=== PATIENT | male | born 1960 | race African-American/Black ===

== ENCOUNTER 2016-09-02 03:46 | Inpatient (IN) | payer MEDICAID, MEDICARE ==
[~2016-09-02] VITALS: Ht 171.4 cm; Wt 74.8 kg
[~2016-09-02 03:46] MED LIST: ATOR20TA65 PO; CARI350T PO; CINA30 PO; CLON0.3T PO; DIAZ10TA4 PO; HYDR-3933; OXYC30TA89 PO; SEVE800T8 PO
[2016-09-02] MEDS ORDERED: ONDANSETRON HCL 4MG/2ML VIAL IV STA (04:01)
[2016-09-02] MEDS ORDERED: MORPHINE SULFATE 4 MG/ML CPJ (NOT FOR IM USE) IV ONE ×2 (04:15→06:15)
[2016-09-02] MEDS ORDERED: LIDOCAINE HCL 1% 20ML VIAL (Pyxis) INJ MC ONE (04:15)
[2016-09-02] MEDS ORDERED: BACITRACIN ZINC OINT UDPKT TOP ONE (04:15)
[2016-09-02] MEDS ORDERED: DIPHENHYDRAMINE 50MG/ML VIAL IV ONE ×2 (04:15→06:15)
[2016-09-02 04:31] LABS: HEMATOCRIT. 47.3 % (42.0-52.0); HEMOGLOBIN. 15.3 g/dL (14.0-18.0); MEAN CORPUSCULAR HEMOGLOBIN 29.1 pg (28.0-32.0); MEAN CORPUSCULAR HGB CONC 32.4 g/dL (31.0-37.0); MEAN PLATELET VOLUME 8.3 fl (7.4-10.4); PLATELET 238 x1000/uL (130-400); RED BLOOD CELL COUNT 5.26 mill/uL (4.7-6.1); WHITE BLOOD COUNT 12.2 x1000/uL (4.5-11.0)
[2016-09-02 04:40] LABS: DIFFERENTIAL COMMENT 1
[2016-09-02 04:44] LABS: INR 1.1; PROTHROMBIN TIME 11.4 sec
[2016-09-02 04:46] LABS: ALANINE AMINOTRANSFERASE 25 IU/L (13-61); ALBUMIN 3.2 g/dL (3.4-5.0); ANION GAP 16; CALCIUM 9.2 mg/dL (8.5-10.1); CARBON DIOXIDE 29 mEq/L (21-32); CHLORIDE 95 mEq/L (98-107); INDEX HEMOLYSI 2 (1-3); INDEX ICTERIC 1 (1-4); INDEX LIPEMIC 1 (1-3); UREA NITROGEN BLOOD 34 mg/dL (7-21); eGFR 8 mL/min (>60)
[2016-09-02 06:41] LABS: PLATELET ESTIMATE NORMAL
[2016-09-02] MEDS ORDERED: PIPERACILLIN/TAZ 3.375G PREMIX 50 ML IV ONE (07:00)
[2016-09-02] MEDS ORDERED: VANCOMYCIN 1 G PREMIX 200 ML IV ONE (07:00)
[2016-09-02 09:20] VITALS: BP 100/67
[2016-09-02] MEDS ORDERED: NITROGLYCERIN 0.4MG TABLET SL SL PRN (09:30)
[2016-09-02] MEDS ORDERED: DOCUSATE SODIUM 100MG CAPSULE PO PRN (09:30)
[2016-09-02] MEDS ORDERED: ONDANSETRON HCL 4MG/2ML VIAL IV PRN (09:30)
[2016-09-02] MEDS ORDERED: MAGNESIUM/ALUMINUM HYDROXIDE/SIMETHICONE 30ML UDC PO PRN (09:30)
[2016-09-02] MEDS: PANTOPRAZOLE SODIUM 40 MG/VIAL IV SCH (09:30)
[2016-09-02] MEDS: METOPROLOL TARTRATE 25MG TABLET PO SCH ×2 (09:30→21:00)
[2016-09-02] MEDS ORDERED: ACETAMINOPHEN 325MG TABLET PO PRN (09:30)
[2016-09-02] MEDS ORDERED: CLONIDINE 0.1MG TABLET PO PRN (09:30)
[2016-09-02] MEDS ORDERED: GUAIFENESIN 200MG/10ML SUGAR FREE UDC PO PRN (09:30)
[2016-09-02] MEDS ORDERED: TRAMADOL 50MG TABLET PO PRN (09:30)
[2016-09-02] MEDS ORDERED: IPRATROPIUM/ALBUTEROL 0.5-3(2.5)MG/3ML NEB INH PRN (09:30)
[2016-09-02] MEDS: MORPHINE SULFATE 2 MG/ML CPJ (NOT FOR IM USE) IV PRN ×2 (11:11→19:48)
[2016-09-02] MEDS ORDERED: SODIUM CHLORIDE 0.9% 10ML VIAL ONE (11:36)
[2016-09-02] MEDS ORDERED: BACITRACIN ZINC 15GM TUBE TOP ONE (11:42)
[2016-09-02] MEDS ORDERED: HEPARIN SODIUM 1,000 UNIT/1ML VIAL IV ONE (11:42)
[2016-09-02] MEDS ORDERED: NORMAL SALINE 0.9% 10 ML SYR ONE (11:42)
[2016-09-02] MEDS ORDERED: LIDOCAINE HCL 1% 20ML VIAL (Pyxis) INJ ONE (11:42)
[2016-09-02] MEDS ORDERED: GELATIN SPONGE,ABSORBABLE SZ 100 ONE (11:42)
[2016-09-02] MEDS ORDERED: BUPIVACAINE HCL 0.5% (5MG/ML) 50ML ONE (11:43)
[2016-09-02] MEDS ORDERED: BACITRACIN 50,000 UNITS/VIAL ONE (11:43)
[2016-09-02] MEDS ORDERED: THROMBIN (BOVINE) 5000 UNITS/VIAL TOP ONE (11:43)
[2016-09-02] MEDS: SEVELAMER CARBONATE 800 MG TABLET PO SCH ×2 (12:06→17:14)
[2016-09-02] MEDS ORDERED: FENTANYL CITRATE/PF 50MCG/ML 2ML VIAL ONE (12:21)
[2016-09-02] MEDS ORDERED: PROPOFOL 200MG/20ML VIAL IV ONE (12:21)
[2016-09-02] MEDS ORDERED: CEFAZOLIN SODIUM 1000MG/VIAL ONE (12:21)
[2016-09-02] MEDS ORDERED: EPHEDRINE SULFATE 50MG/ML VIAL ONE (12:48)
[2016-09-02] MEDS ORDERED: METOCLOPRAMIDE HCL 10MG/2ML VIAL ONE (13:09)
[2016-09-02] MEDS ORDERED: ONDANSETRON HCL 4MG/2ML VIAL ONE (13:09)
[2016-09-02 15:48] VITALS: BP 112/70
[2016-09-02 16:00] VITALS: BP 104/77
[2016-09-02] MEDS: DIPHENHYDRAMINE 50MG/ML VIAL IV PRN ×2 (17:11→21:09)
[2016-09-02 19:35] VITALS: BP 133/72
[2016-09-02 20:16] LABS: HEMATOCRIT 38.8 % (42.0-52.0); HEMOGLOBIN 12.2 g/dL (14.0-18.0)
[2016-09-02 20:29] LABS: CREATINE KINASE 48 IU/L (39-308); CREATINE KINASE MB FRACTION < 0.5 ng/mL (0.5-3.6); INDEX HEMOLYSI 2 (1-3); TROPONIN I 0.05 ng/mL (0.00-0.04)
[2016-09-02] MEDS ORDERED: ZOLPIDEM TARTRATE 5MG TABLET PO PRN (21:00)
[2016-09-03] VITALS: BP 122/79
[2016-09-03] MEDS: DIPHENHYDRAMINE 50MG/ML VIAL IV PRN ×5 (01:07→20:49)
[2016-09-03] MEDS: MORPHINE SULFATE 2 MG/ML CPJ (NOT FOR IM USE) IV PRN ×3 (02:25→17:01)
[2016-09-03 03:38] LABS: CREATINE KINASE 47 IU/L (39-308); CREATINE KINASE MB FRACTION < 0.5 ng/mL (0.5-3.6); INDEX HEMOLYSI 1 (1-3); TROPONIN I 0.06 ng/mL (0.00-0.04)
[2016-09-03 04:30] VITALS: BP 125/85
[2016-09-03 05:24] LABS: HEMATOCRIT 36.8 % (42.0-52.0); HEMOGLOBIN 11.8 g/dL (14.0-18.0)
[2016-09-03] MEDS: SEVELAMER CARBONATE 800 MG TABLET PO SCH ×3 (06:31→17:01)
[2016-09-03 08:00] VITALS: BP 116/73
[2016-09-03] MEDS: METOPROLOL TARTRATE 25MG TABLET PO SCH (09:00)
[2016-09-03 09:03] LABS: BASOPHILS % 0.6 % (0.0-2.0); EOSINOPHILS % 3.4 % (0.0-5.0); HEMATOCRIT. 38.1 % (42.0-52.0); HEMOGLOBIN. 12.2 g/dL (14.0-18.0); MEAN CORPUSCULAR HEMOGLOBIN 29.1 pg (28.0-32.0); MEAN CORPUSCULAR HGB CONC 31.9 g/dL (31.0-37.0); MEAN CORPUSCULAR VOLUME 91.3 fL (80.0-94.0); MEAN PLATELET VOLUME 8.4 fl (7.4-10.4); MONOCYTES % 11.2 % (2.0-8.0); NEUTROPHILS % 67.8 % (40.0-76.0); PLATELET 188 x1000/uL (130-400); RED BLOOD CELL COUNT 4.17 mill/uL (4.7-6.1); RED CELL DISTRIBUTION WIDTH 18.7 % (11.6-14.6); WHITE BLOOD COUNT 6.2 x1000/uL (4.5-11.0)
[2016-09-03 09:09] LABS: INR 1.1; PARTIAL THROMBOPLASTIN TIME 33.9 sec (24.0-34.0); PROTHROMBIN TIME 11.9 sec
[2016-09-03 09:15] LABS: CALCIUM 8.4 mg/dL (8.5-10.1)
[2016-09-03] MEDS: PANTOPRAZOLE SODIUM 40 MG/VIAL IV SCH (10:50)
[2016-09-03 11:00] VITALS: BP 140/78
[2016-09-03 15:33] LABS: HEMATOCRIT 37.9 % (42.0-52.0); HEMOGLOBIN 12.2 g/dL (14.0-18.0)
[2016-09-03 16:00] VITALS: BP 133/92
[2016-09-03] MEDS ORDERED: VANCOMYCIN 1 G PREMIX 200 ML IV SCH (17:00)
[2016-09-03 20:07] VITALS: BP 126/96
[2016-09-03] MEDS ORDERED: HEPARIN SODIUM 1,000 UNIT/1ML VIAL IV NR (21:45)
[2016-09-03 22:03] LABS: HEMATOCRIT 36.1 % (42.0-52.0); HEMOGLOBIN 11.5 g/dL (14.0-18.0)
[2016-09-04] VITALS (7 sets, daily range): BP systolic 102–128; BP diastolic 77–90
[2016-09-04] MEDS: LORAZEPAM 2MG/ML CPJ IV PRN ×3 (00:18→21:23)
[2016-09-04] MEDS: METOPROLOL TARTRATE 25MG TABLET PO SCH ×3 (00:18→21:03)
[2016-09-04] MEDS: DIPHENHYDRAMINE 50MG/ML VIAL IV PRN ×4 (01:37→18:23)
[2016-09-04] MEDS: MORPHINE SULFATE 2 MG/ML CPJ (NOT FOR IM USE) IV PRN ×4 (01:37→23:43)
[2016-09-04] MEDS: SEVELAMER CARBONATE 800 MG TABLET PO SCH ×4 (06:17→16:53)
[2016-09-04 06:49] LABS: BASOPHILS % 0.6 % (0.0-2.0); EOSINOPHILS % 4.4 % (0.0-5.0); HEMOGLOBIN. 12.7 g/dL (14.0-18.0); LYMPHOCYTES % 16.9 % (20.0-50.0); MEAN CORPUSCULAR HGB CONC 32.5 g/dL (31.0-37.0); MEAN CORPUSCULAR VOLUME 89.3 fL (80.0-94.0); MEAN PLATELET VOLUME 8.8 fl (7.4-10.4); MONOCYTES % 11.7 % (2.0-8.0); NEUTROPHILS % 66.4 % (40.0-76.0); PLATELET 212 x1000/uL (130-400); RED BLOOD CELL COUNT 4.36 mill/uL (4.7-6.1); RED CELL DISTRIBUTION WIDTH 18.4 % (11.6-14.6); WHITE BLOOD COUNT 6.7 x1000/uL (4.5-11.0)
[2016-09-04 08:23] LABS: CALCIUM 8.1 mg/dL (8.5-10.1)
[2016-09-04] MEDS: PANTOPRAZOLE SODIUM 40 MG/VIAL IV SCH (09:13)
[2016-09-05] VITALS: BP 111/79
[2016-09-05] MEDS: DIPHENHYDRAMINE 50MG/ML VIAL IV PRN ×4 (00:26→23:10)
[2016-09-05 04:00] VITALS: BP 127/95
[2016-09-05] MEDS: MORPHINE SULFATE 2 MG/ML CPJ (NOT FOR IM USE) IV PRN ×3 (06:19→23:10)
[2016-09-05 06:46] LABS: BASOPHILS % 0.7 % (0.0-2.0); EOSINOPHILS % 6.6 % (0.0-5.0); HEMATOCRIT. 40.9 % (42.0-52.0); HEMOGLOBIN. 13.2 g/dL (14.0-18.0); LYMPHOCYTES % 22.1 % (20.0-50.0); MEAN CORPUSCULAR HEMOGLOBIN 29.1 pg (28.0-32.0); MEAN CORPUSCULAR HGB CONC 32.3 g/dL (31.0-37.0); MEAN CORPUSCULAR VOLUME 90.3 fL (80.0-94.0); MEAN PLATELET VOLUME 8.8 fl (7.4-10.4); MONOCYTES % 9.8 % (2.0-8.0); NEUTROPHILS % 60.8 % (40.0-76.0); PLATELET 213 x1000/uL (130-400); RED BLOOD CELL COUNT 4.53 mill/uL (4.7-6.1); WHITE BLOOD COUNT 5.6 x1000/uL (4.5-11.0)
[2016-09-05 07:35] LABS: CALCIUM 8.1 mg/dL (8.5-10.1)
[2016-09-05] MEDS: SEVELAMER CARBONATE 800 MG TABLET PO SCH ×3 (08:30→18:23)
[2016-09-05] MEDS: METOPROLOL TARTRATE 25MG TABLET PO SCH ×2 (08:31→20:29)
[2016-09-05] MEDS: PANTOPRAZOLE SODIUM 40 MG/VIAL IV SCH (08:31)
[2016-09-05 12:00] VITALS: BP 131/82
[2016-09-05] MEDS ORDERED: DIPHENHYDRAMINE 50MG/ML VIAL IV ONE (15:15)
[2016-09-05] MEDS ORDERED: DIPHENHYDRAMINE 50MG/ML VIAL IV NR ×2 (15:22→17:30)
[2016-09-05 16:47] VITALS: BP 121/42
[2016-09-05] MEDS: LORAZEPAM 2MG/ML CPJ IV PRN (17:50)
[2016-09-05 20:00] VITALS: BP 126/74
[2016-09-05] MEDS ORDERED: VANCOMYCIN 1 G PREMIX 200 ML IV SCH (21:00)
[2016-09-06] VITALS (10 sets, daily range): BP systolic 112–139; BP diastolic 78–94
[2016-09-06] MEDS: LORAZEPAM 2MG/ML CPJ IV PRN (00:33)
[2016-09-06] MEDS: METOPROLOL TARTRATE 25MG TABLET PO SCH (09:00)
[2016-09-06] MEDS ORDERED: FAMOTIDINE 20MG TABLET PO SCH (09:00)
[2016-09-06] MEDS: MORPHINE SULFATE 2 MG/ML CPJ (NOT FOR IM USE) IV PRN (09:01)
[2016-09-06] MEDS: DIPHENHYDRAMINE 50MG/ML VIAL IV PRN (09:02)
[2016-09-06] MEDS: SEVELAMER CARBONATE 800 MG TABLET PO SCH (11:32)
[2016-09-06] MEDS ORDERED: CEFAZOLIN 1000MG PREMIX 50 ML IV ONE (12:15)
[2016-09-06] MEDS ORDERED: FENTANYL CITRATE/PF 50MCG/ML 2ML VIAL IV ONE (12:15)
== END 2016-09-06 14:35 | disposition home or self-care (01) | DRG 252 ==
LOC: ER 04:17 → 8WST 07:17
PROVIDERS: ADMIT Internal Medicine; ATTEND Internal Medicine
PROC: 0XP70YZ Removal of Other Device from Left Upper Extremity, Open Approach (ICD-10-PCS; 2016-09-02)
PROC: 05L80ZZ Occlusion of Left Axillary Vein, Open Approach (ICD-10-PCS; 2016-09-02)
PROC: 03L80ZZ Occlusion of Left Brachial Artery, Open Approach (ICD-10-PCS; principal; 2016-09-02 11:30)
PROC: 02HV33Z Insertion of Infusion Device into Superior Vena Cava, Percutaneous Approach (ICD-10-PCS; 2016-09-03)
PROC: B5181ZA Fluoroscopy of Superior Vena Cava using Low Osmolar Contrast, Guidance (ICD-10-PCS; 2016-09-03)
PROC: B548ZZA Ultrasonography of Superior Vena Cava, Guidance (ICD-10-PCS; 2016-09-03)
PROC: 5A1D60Z (ICD-10-PCS; 2016-09-03)
PROC: 02PYX3Z Removal of Infusion Device from Great Vessel, External Approach (ICD-10-PCS; 2016-09-06)
PROC: 02H633Z Insertion of Infusion Device into Right Atrium, Percutaneous Approach (ICD-10-PCS; 2016-09-06)
PROC: B2141ZZ Fluoroscopy of Right Heart using Low Osmolar Contrast (ICD-10-PCS; 2016-09-06)
DX: T82.838A Hemorrhage due to vascular prosthetic devices, implants and grafts, initial encounter (principal); N18.6 End stage renal disease; A41.02 Sepsis due to Methicillin resistant Staphylococcus aureus; E44.1 Mild protein-calorie malnutrition; E87.1 Hypo-osmolality and hyponatremia; I12.0 Hypertensive chronic kidney disease with stage 5 chronic kidney disease or end stage renal disease; T82.7XXA Infection and inflammatory reaction due to other cardiac and vascular devices, implants and grafts, initial encounter; D64.9 Anemia, unspecified; E87.5 Hyperkalemia; I25.10 Atherosclerotic heart disease of native coronary artery without angina pectoris; I34.0 Nonrheumatic mitral (valve) insufficiency; Y83.2 Surgical operation with anastomosis, bypass or graft as the cause of abnormal reaction of the patient, or of later complication, without mention of misadventure at the time of the procedure; Y84.1 Kidney dialysis as the cause of abnormal reaction of the patient, or of later complication, without mention of misadventure at the time of the procedure; Z99.2 Dependence on renal dialysis; Z88.6 Allergy status to analgesic agent; Z79.899 Other long term (current) drug therapy; Z86.19 Personal history of other infectious and parasitic diseases; Z28.21 Immunization not carried out because of patient refusal; Z68.25 Body mass index [BMI] 25.0-25.9, adult
CPT/HCPCS: 36415; 36556; 36558; 36589; 71010; 76937; 77001; 80048; 80053; 80202; 82550; 82553; 83605; 84484; 85014; 85018; 85025; 85610; 85730; 86850; 86900; 87040; 87077; 88304; 93005; 93306; 96365; 96366; 96368; 96375; 96376; 99285; A4216; C1725; C1750; C1752; C1769; C1887; C1893; C9113; J0171; J0690; J1200; J1644; J2060; J2270; J2405; J2543; J2704; J2765; J3010; J3370; J3490; J7030; J7040; J7050